=== PATIENT | female | born 1980 | race African-American/Black ===

== ENCOUNTER → 2017-12-17 | Outpatient (CLI) | payer MEDICAID ==
[~2017-12-17] MED LIST: Z.0.NO CURRENT MEDS
--- NOTE | 2017-12-17 14:38 | EKG ---
Date Performed: 12/17/2017 Time Performed: 10:55:02 PTAGE: 37 years EKG: Sinus rhythm . Normal ECG NO PREVIOUS TRACING DOCTOR: Raul Swanson Interpretating Date/Time 12/17/2017 14:31:15
== END ==
LOC: HCAV 10:40
PROVIDERS: ATTEND Psychiatry & Neurology Child & Adolescent Psychiatry
DX: F33.1 Major depressive disorder, recurrent, moderate (principal); F41.8 Other specified anxiety disorders
CPT/HCPCS: 93005